=== PATIENT | male | born 1945 | race Caucasian/White ===

== ENCOUNTER 2019-11-19 10:21 | Emergency (ER) | payer MEDICARE, OTHER, SELFPAY ==
[2019-11-19] VITALS (12 sets, daily range): BP systolic 149–193; BP diastolic 75–99; PULSE 68–92; RESP 15–31; TEMP 37; O2SAT 92–98; BMI 38.3
--- NOTE | 2019-11-19 10:43 | DI.RAD.S_ITS ---
PROCEDURE: XR CHEST 1V INDICATIONS: chest pain TECHNIQUE: One view of the chest was acquired. COMPARISON: [facility], CR, XR CHEST 1V, 06/29/2017, 13:49. FINDINGS: Surgical changes and devices: None. Lungs and pleura: Lungs are clear. No pleural effusions or pneumothorax. Mediastinum: Mediastinal contours appear normal. Heart size is at upper limits of normal. Bones and chest wall: No suspicious bony lesions. Overlying soft tissues appear unremarkable. IMPRESSION: No acute cardiopulmonary disease. Dictated by: Pia Mercer M.D. on 11/19/2019 at 11:28 Approved by: Pia Mercer M.D. on 11/19/2019 at 11:51
[2019-11-19] MEDS: FLEETS ENEMA 1 EACH PR (11:02)
[2019-11-19] MEDS: SODIUM CHLORIDE 0.9% 1,000 ML 1000 ML IV (11:02)
--- NOTE | 2019-11-19 11:16 | ED_ITS ---
HPI - Syncope General Chief Complaint: Syncope Stated Complaint: syncope Time Seen by Provider: 11/19/19 10:26 History of Present Illness HPI narrative: 74-year-old gentleman with chronic back pain on methadone with opioid induced chronic constipation presents after a syncopal episode while trying to have a bowel movement this morning. Reports increasing constipation for the past 4 days for which he has continued his Linzess, increased fluids, used MiraLax and this morning was able to produce some tiny turds but no significant bowel movement. He is complaining of increasing abdominal pain and cramping. While he was straining on the toilet this morning he did have a syncopal episode and woke up on the floor of his bathroom. He does not believe he hit anything and has no musculoskeletal complaints. He complains of no chest pain, dyspnea, headache. No acute neurologic changes and he otherwise feels well aside from the continued sense of constipation with abdominal cramping. Related Data Home Medications Medication Instructions Recorded Confirmed aspirin 81 mg PO QDAY #0 10/24/10 06/29/17 Marijuana Candy 1 ea PO PRN PRN 06/29/17 06/29/17 amlodipine 10 mg PO QDAY 06/29/17 06/29/17 atorvastatin 40 mg PO QHS 06/29/17 06/29/17 clonazepam 1 mg PO QDAY 06/29/17 06/29/17 clonazepam 2 mg PO QPM 06/29/17 06/29/17 clonidine HCl 0.1 mg PO QDAY 06/29/17 06/29/17 cyclobenzaprine 10 mg PO Q6H PRN 06/29/17 06/29/17 docusate sodium 100 mg PO BID 06/29/17 06/29/17 finasteride 10 mg PO QHS 06/29/17 06/29/17 hydrochlorothiazide 25 mg PO QDAY 06/29/17 06/29/17 linaclotide [Linzess] 145 mcg PO QDAY 06/29/17 06/29/17 losartan 100 mg PO QDAY 06/29/17 06/29/17 methadone 20 mg PO QDAY 06/29/17 06/29/17 multivitamin 1 tab PO DAILY 06/29/17 06/29/17 omega 0-mzm-pna-fish oil [Fish Oil] 1 cap PO QDAY 06/29/17 06/29/17 sertraline 100 mg PO QDAY 06/29/17 06/29/17 vitamin E 1 cap PO QDAY 06/29/17 06/29/17 Previous Rx's Medication Instructions Recorded diazepam 5 mg PO BID #10 tab 06/29/17 ondansetron [Zofran ODT] 4 mg PO Q6H PRN #10 tab 06/29/17 Allergies Allergy/AdvReac Type Severity Reaction Status Date / Time doxycycline Allergy Severe HARD TIME Unverified 06/29/17 14:28 BREATHING, VOMITING, TROUBLE SWALLOWING lorazepam [LORAZEPAM] Allergy Severe DIFFICULTY Unverified 06/29/17 14:28 BREATHING iodine Allergy Unknown Unverified 06/29/17 14:28 lithium Allergy Unknown Unverified 06/29/17 14:28 morphine Allergy Unknown Unverified 06/29/17 14:28 Penicillins Allergy Unknown Unverified 06/29/17 14:28 sertraline Allergy Unknown Unverified 06/29/17 14:28 shellfish derived Allergy Unknown Unverified 06/29/17 14:28 Sulfa (Sulfonamide Allergy Unknown Unverified 06/29/17 14:28 Antibiotics) Review of Systems Review of Systems Narrative: Pertinent positive and negative findings as per HPI Remainder of review of systems is otherwise unremarkable for Constitutional: Fevers, chills, weakness ENT: No sore throat, neck pain, ear pain Respiratory: Cough, wheeze, dyspnea : Dysuria, hematuria, flank pain MS: Muscle weakness, numbness, joint swelling or warmth Skin: Rashes, nonhealing lesions Patient History Medical History Chronic back pain (Acute) Hypertension (Acute) Therapeutic opioid induced constipation (Acute) Social History Smoking Status: Never smoker Smoking Status: Never smoker Substance Use Type: does not use Exam Narrative Exam Narrative: General: Healthy appearing, in no acute distress. Able to give a complete and coherent history. Well-nourished well-developed HEENT: Moist mucous membranes, normal sclera with reactive pupils, no evidence of trauma Neck: No JVD, supple, no midline tenderness Respiratory: Lungs are clear to auscultation, no wheezing no rales no rhonchi. Full and symmetrical air movement Cardiac: Regular rate and rhythm no murmurs no bruits Abdomen: Soft nontender to palpation good bowel tones, no flank pain Skin: Warm and dry, no rashes Neurologic: Grossly neurologically intact with no obvious asymmetries or abnormalities Extremities: No trauma, well perfused Psych: Cooperative, appropriate insight and affect Rectal exam: Significant amount of firm stool in the rectal vault. Manual disimpaction performed. Initial Vital Signs Initial Vital Signs: Vital Signs Blood Pressure 189/88 H 11/19/19 10:26 Course Orders Ordered: ED Orders 11/19/19 10:26 EKG-12 Lead Routine 11/19/19 10:43 XR chest 1V Stat 11/19/19 11:16 Complete Blood Count AUTO DIFF Stat Comprehensive Metabolic Panel Stat Lipase Stat Partial Thromboplastin Time Stat Prothrombin Time INR Stat Troponin & CK Cardiac Panel Stat Discontinued Medications Bisacodyl (Dulcolax) 10 mg HI NOW ONE Stop: 11/19/19 11:57 Last Admin: 11/19/19 12:09 Dose: 10 mg Documented by: CAYLA Dicyclomine HCl (Bentyl) 20 mg PO NOW ONE Stop: 11/19/19 11:57 Last Admin: 11/19/19 12:09 Dose: 20 mg Documented by: CAYLA Sodium Chloride (Normal Saline 0.9%) 1,000 mls @ 1,000 mls/hr IV BOLUS ONE Stop: 11/19/19 11:47 Last Infusion: 11/19/19 11:57 Dose: 500 mls/hr Documented by: Infusion: 11/19/19 11:15 Dose: 0 mls/hr Documented by: Admin: 11/19/19 11:02 Dose: 1,000 mls/hr Documented by: CAYLA Sodium Chloride (Normal Saline 0.9%) 1,000 mls @ 1,000 mls/hr IV BOLUS ONE Stop: 11/19/19 12:19 Last Admin: 11/19/19 11:57 Dose: Not Given Documented by: CAYLA Sodium Biphosphate/Sodium Phosphate (Fleet Enema) 1 each HI NOW ONE Stop: 11/19/19 10:47 Last Admin: 11/19/19 11:02 Dose: 1 each Documented by: CAYLA Vital Signs Vital signs: Vital Signs - 8 hr 11/19/19 10:26 11/19/19 10:27 11/19/19 10:30 Temperature 98.6 F Pulse Rate 80 77 Respiratory Rate 19 15 Blood Pressure 189/88 H 189/88 H Pulse Oximetry 94 92 11/19/19 11:00 11/19/19 11:30 11/19/19 12:00 Temperature Pulse Rate 81 71 76 Respiratory Rate 18 22 Blood Pressure Pulse Oximetry 11/19/19 12:07 11/19/19 12:30 11/19/19 13:00 Temperature Pulse Rate 75 91 H 92 H Respiratory Rate 27 H 26 H 31 H Blood Pressure 176/75 H 149/99 H Pulse Oximetry MDM - Syncope Medical Records Attestation: I reviewed the patient's medical records. Lab Data Attestation: I reviewed the patient's lab results. Result diagrams: 11/19/19 11:16 11/19/19 11:16 Labs: Lab Results 11/19/19 11/19/19 11/19/19 Range/Units 11:16 11:16 11:16 WBC 9.8 (4.5-11.0) X10^3/uL RBC 4.25 L (4.5-5.9) X10^6/uL Hgb 12.9 L (13.5-17.5) g/dL Hct 38.5 L (41-53) % MCV 90.7 (80-100) fL MCH 30.3 (26-34) PG MCHC 33.4 (30-36) % RDW 13.5 (11.6-14.8) % Plt Count 193 (150-400) X10^3/uL Neut % (Auto) 75.0 (50-75) % Lymph % (Auto) 15.5 L (25-40) % [place] % (Auto) 7.3 (3-14) % Eos % (Auto) 2.0 (2-4) % Baso % (Auto) 0.2 (0-2) % Neut # (Auto) 7300 H (4651-4196) /uL Lymph # (Auto) 1500 (1403-2465) /uL [place] # (Auto) 700 (0-900) /uL Eos # (Auto) 200 (0-450) /uL Baso # (Auto) 0 (0-100) /uL PT 12.3 (10.1-12.7) SECONDS INR 1.1 (0.9-1.3) APTT 26 L (26.4-36.2) SECONDS Sodium 132 L (137-145) mmol/L Potassium 4.3 (3.4-5.1) mmol/L Chloride 98 (98-107) mmol/L Carbon Dioxide 29 (22-32) mmol/L BUN 14 (9-20) mg/dL Creatinine 0.82 (0.66-1.25) mg/dL Estimated GFR > 60.0 (>60) mL/min BUN/Creatinine Ratio 17.1 (6-22) Glucose 122 H (80-110) mg/dL Calcium 8.7 (8.4-10.2) mg/dL Total Bilirubin 1.2 (0.2-1.3) mg/dL AST 43 (17-59) IU/L ALT 44 (<50) IU/L Alkaline Phosphatase 95 (38-126) U/L Total Creatine Kinase 98 (55-170) U/L CK-MB (CK-2) TNP CK-MB (CK-2) Rel Index TNP Troponin I < 0.012 (0.01-0.034) ng/mL Total Protein 6.6 (6.3-8.2) g/dL Albumin 3.7 (3.5-5.0) g/dL Globulin 2.9 (1.7-4.1) g/dL Albumin/Globulin Ratio 1.3 (1.0-2.8) Lipase 39 (23-300) U/L Imaging Data Chest x-ray: Radiologist's Impression: FINDINGS: Surgical changes and devices: None. Lungs and pleura: Lungs are clear. No pleural effusions or pneumothorax. Mediastinum: Mediastinal contours appear normal. Heart size is at upper limits of normal. Bones and chest wall: No suspicious bony lesions. Overlying soft tissues appear unremarkable. IMPRESSION: No acute cardiopulmonary disease. Dictated by: Pia Mercer M.D. on 11/19/2019 at 11:28 ECG Data Attestation: I personally reviewed and interpreted this ECG as follows: Interpretation: Sinus rhythm at a rate of 79 Leftward axis No acute ischemic changes MDM Narrative Medical decision making narrative: Significant constipation. After manual disimpaction and oil enema there still minimal output. Suppository was tried for the stimulation affects. Significant straining cramping and overflow type incontinence. Bladder scan was done and revealed almost a L in the bladder. Rosa was placed without difficulty and 1300 cc his drained out of the 1st 30 minutes and once bladder pain was relieved he was able to have a large bowel movement. Patient is feeling dramatically better We discussed leaving the Rosa in verses taking out. He prefers that come out. He understands that if he is unable to void later today he will need to return to the emergency department to have it replaced. I believe that the urinary retention in the severe constipation were complicating each other and now that both have been relieved both will likely continue to be improved. We did discuss daily MiraLax to prevent continued constipation in the setting of chronic methadone use even while he is taking Linzess. Is on finasteride for enlarged prostate and does have a urologist. Discharge Plan Departure Patient Disposition: Home Clinical Impression: Acute urinary retention Constipation Qualifiers: Constipation type: drug induced constipation Qualified Code(s): K59.03 - Drug induced constipation Instructions: DI for Constipation, DI for Urinary Retention in Men Activity Restrictions/Additional Instructions: Thank you so much for coming in today I am glad that we were able to help with your severe constipation as well as acute urinary retention. I think that one was making the other worse and now that both have improved I am hoping that both will stay asymptomatic. If you find that you are unable to void later this afternoon you will need to return to the emergency room to have a Rosa catheter replaced. I would recommend that you add a scoop of MiraLax every day to your bowel regimen in addition to the Linzess to avoid severe constipation from your methadone use. I hope you feel better Prescriptions: No Action aspirin 81 MG tablet,delayed release (DR/EC) 81 mg PO QDAY Qty: 0 RF: 0 atorvastatin 40 mg tablet 40 mg PO QHS RF: 0 clonazepam 1 mg Tablet 2 mg PO QPM RF: 0 amlodipine 10 mg tablet 10 mg PO QDAY RF: 0 hydrochlorothiazide 25 mg tablet 25 mg PO QDAY RF: 0 clonidine HCl 0.1 mg tablet extended release 12 hr 0.1 mg PO QDAY RF: 0 clonazepam 1 MG tablet 1 mg PO QDAY RF: 0 losartan 100 mg tablet 100 mg PO QDAY RF: 0 cyclobenzaprine 10 mg tablet 10 mg PO Q6H PRN (Reason: Spasms) RF: 0 sertraline 100 mg tablet 100 mg PO QDAY RF: 0 docusate sodium 100 mg Capsule 100 mg PO BID RF: 0 finasteride 5 mg Tablet 10 mg PO QHS RF: 0 linaclotide [Linzess] 145 mcg capsule 145 mcg PO QDAY RF: 0 methadone 10 mg tablet 20 mg PO QDAY RF: 0 multivitamin Tablet 1 tab PO DAILY RF: 0 omega 5-wrm-kje-fish oil [Fish Oil] 1,000 mg (120 mg-180 mg) Capsule 1 cap PO QDAY RF: 0 vitamin E capsule 1 cap PO QDAY RF: 0 Marijuana Candy 1 ea PO PRN PRN (Reason: ptsd) RF: 0 ondansetron [Zofran ODT] 4 mg tablet,disintegrating 4 mg PO Q6H PRN (Reason: nausea) Qty: 10 RF: 0 diazepam 5 mg tablet 5 mg PO BID Qty: 10 RF: 0 Referrals: Epp,Marisol, UNDERWRITING SPECIALIST-BC [Primary Care Provider] -
[2019-11-19 11:25] LABS: Add Manual Diff / Slide Review NO; Basophils Absolute Auto 0 /uL (0-100); Basophils Percent Auto 0.2 % (0-2); Eosinophils Absolute Auto 200 /uL (0-450); Hematocrit 38.5 % (41-53); Hemoglobin 12.9 g/dL (13.5-17.5); Lymphocytes Absolute Auto 1500 /uL (1100-4500); Lymphocytes Percent Auto 15.5 % (25-40); Mean Corpuscular HGB Conc 33.4 % (30-36); Mean Corpuscular Hemoglobin 30.3 PG (26-34); Mean Corpuscular Volume 90.7 fL (80-100); Monocytes Absolute Auto 700 /uL (0-900); Monocytes Percent Auto 7.3 % (3-14); Neutrophils Absolute Auto 7300 /uL (1500-7000); Platelet Count 193 X10^3/uL (150-400); Red Blood Cell Count 4.25 X10^6/uL (4.5-5.9); Red Cell Distribution Width 13.5 % (11.6-14.8); White Blood Cell Count 9.8 X10^3/uL (4.5-11.0)
[2019-11-19 11:29] LABS: INR 1.1 (0.9-1.3); Prothrombin Time 12.3 SECONDS (10.1-12.7)
[2019-11-19 11:32] LABS: PTT Partial Thromboplastin Tim 26 SECONDS (26.4-36.2)
[2019-11-19 11:34] LABS: Alanine Aminotransferase 44 IU/L (<50); Albumin 3.7 g/dL (3.5-5.0); Albumin Globulin Ratio 1.3 (1.0-2.8); Alkaline Phosphatase 95 U/L (38-126); Aspartate Aminotransferase 43 IU/L (17-59); BUN Creatinine Ratio 17.1 (6-22); Bilirubin Total 1.2 mg/dL (0.2-1.3); Blood Urea Nitrogen 14 mg/dL (9-20); Calcium 8.7 mg/dL (8.4-10.2); Carbon Dioxide 29 mmol/L (22-32); Chloride 98 mmol/L (98-107); Creatine Kinase 98 U/L (55-170); Estimated Glomerular Filt Rate > 60.0 mL/min (>60); Globulin 2.9 g/dL (1.7-4.1); Glucose 122 mg/dL (80-110); HEMOLYSIS < 15 (0-50); Lipase 39 U/L (23-300); Potassium 4.3 mmol/L (3.4-5.1); Sodium 132 mmol/L (137-145); Total Protein 6.6 g/dL (6.3-8.2)
[2019-11-19 11:45] LABS: Troponin I < 0.012 ng/mL (0.01-0.034)
[2019-11-19] MEDS: BISACODYL 10 MG SUPP PR (12:09)
[2019-11-19] MEDS: DICYCLOMINE 10 MG CAPSULE 20 MG PO (12:09)
== END 2019-11-19 14:33 | disposition home or self-care (01) ==
PROVIDERS: Emergency Provider Emergency Medicine; PCP Nurse Practitioner Family
DX: R33.8 Other retention of urine (principal); K59.03 Drug induced constipation; R55 Syncope and collapse
CPT/HCPCS: 36415; 51701; 51798; 71045; 80053; 82550; 83690; 84484; 85025; 85610; 85730; 93005; 93010; 96360; 96361; 99285

== ENCOUNTER → 2022-06-23 08:40 | Outpatient (CLI) | payer MEDICARE, OTHER, SELFPAY | PROVIDERS: PCP Internal Medicine; Referring Provider Internal Medicine; Visit Provider Surgery | DX: E11.621 Type 2 diabetes mellitus with foot ulcer (principal); L97.509 Non-pressure chronic ulcer of other part of unspecified foot with unspecified severity; L97.522 Non-pressure chronic ulcer of other part of left foot with fat layer exposed; L84 Corns and callosities; E11.40 Type 2 diabetes mellitus with diabetic neuropathy, unspecified; M21.6X2 Other acquired deformities of left foot | CPT/HCPCS: 36415; 73630; 80053; 83036; 85025; 97597; 99204; 99213 ==

== ENCOUNTER → 2022-06-23 10:06 | Outpatient (CLI) | payer OTHER, SELFPAY ==
--- NOTE | 2022-06-23 10:10 | DI.RAD.S_ITS ---
PROCEDURE: XR FOOT LT MIN 3V INDICATIONS: ulcer on left 3rd toe TECHNIQUE: 3 views of the foot were acquired. COMPARISON: None. FINDINGS: Bones: No fractures or dislocations. No suspicious bony lesions. Soft tissues: No tibiotalar joint effusion. Achilles tendon appears normal. IMPRESSION: Although no bony erosions are identified, plain film radiography is relatively insensitive in the acute phases of osteomyelitis and may not demonstrate radiographic changes for 15 days. If acute osteomyelitis is of clinical concern, nuclear medicine regional bone scan or MRI is recommended. Dictated by: Yasemin Merino M.D. on 06/23/2022 at 11:36 Approved by: Yasemin Merino M.D. on 06/23/2022 at 11:37
[2022-06-23 11:21] LABS: Add Manual Diff / Slide Review NO; Basophils Absolute Auto 0 /uL (0-100); Basophils Percent Auto 0.3 % (0-2); Eosinophils Absolute Auto 100 /uL (0-450); Eosinophils Percent Auto 0.5 % (2-4); Hematocrit 38.4 % (41-53); Lymphocytes Absolute Auto 2100 /uL (1100-4500); Lymphocytes Percent Auto 17.8 % (25-40); Mean Corpuscular HGB Conc 33.9 % (30-36); Mean Corpuscular Hemoglobin 31.4 PG (26-34); Mean Corpuscular Volume 92.5 fL (80-100); Monocytes Absolute Auto 800 /uL (0-900); Monocytes Percent Auto 6.7 % (3-14); Neutrophils Absolute Auto 9000 /uL (1500-7000); Neutrophils Percent Auto 74.7 % (50-75); Platelet Count 310 X10^3/uL (150-400); Red Blood Cell Count 4.15 X10^6/uL (4.5-5.9); Red Cell Distribution Width 13.3 % (11.6-14.8)
[2022-06-23 12:07] LABS: Alanine Aminotransferase 28 IU/L (<50); Albumin 4.2 g/dL (3.5-5.0); Albumin Globulin Ratio 1.4 (1.0-2.8); Alkaline Phosphatase 76 U/L (38-126); Aspartate Aminotransferase 29 IU/L (17-59); BUN Creatinine Ratio 18.8 (6-22); Bilirubin Total 1.7 mg/dL (0.2-1.3); Blood Urea Nitrogen 19 mg/dL (9-20); Carbon Dioxide 27 mmol/L (22-32); Chloride 99 mmol/L (98-107); Estimated Glomerular Filt Rate > 60 mL/min (>60); Globulin 2.9 g/dL (1.7-4.1); Glucose 94 mg/dL (80-110); HEMOLYSIS 22 (0-50); Potassium 4.6 mmol/L (3.4-5.1); Sodium 134 mmol/L (137-145); Total Protein 7.1 g/dL (6.3-8.2)
[2022-06-24 09:34] LABS: x Labcorp Estim. Avg Glu (eAG) 123 mg/dL (.); x Labcorp Hemoglobin A1c 5.9 % (4.8-5.6)
== END ==
PROVIDERS: PCP Internal Medicine; Referring Provider Surgery; Visit Provider Surgery
DX: E11.621 Type 2 diabetes mellitus with foot ulcer (principal); L97.509 Non-pressure chronic ulcer of other part of unspecified foot with unspecified severity
CPT/HCPCS: 36415; 73630; 80053; 83036; 85025

== ENCOUNTER → 2022-06-30 13:01 | Outpatient (CLI) | payer MEDICARE, OTHER, SELFPAY | PROVIDERS: PCP Internal Medicine; Referring Provider Internal Medicine; Visit Provider Surgery | DX: M21.6X2 Other acquired deformities of left foot (principal); I10 Essential (primary) hypertension | CPT/HCPCS: 99213 ==

== ENCOUNTER 2023-11-15 15:53 | Emergency (ER) | payer MEDICARE, OTHER, SELFPAY ==
[2023-11-15] VITALS (15 sets, daily range): BP systolic 105–150; BP diastolic 57–79; PULSE 53–78; RESP 16–21; TEMP 36.6; O2SAT 94–97; BMI 41.3
--- NOTE | 2023-11-15 16:09 | DI.RAD.S_ITS ---
PROCEDURE: XR CHEST 1V INDICATIONS: altered mental status TECHNIQUE: One view of the chest was acquired. COMPARISON: [facility], CR, XR CHEST 1V, 11/19/2019, 10:57. FINDINGS: Surgical changes and devices: None. Lungs and pleura: Lungs are clear. No pleural effusions or pneumothorax. Mediastinum: Mediastinal contours appear normal. Heart size is normal. Bones and chest wall: No suspicious bony lesions. Overlying soft tissues appear unremarkable. IMPRESSION: No acute cardiopulmonary abnormality is seen. Approved by: Raymundo Dos Santos M.D. on 11/15/2023 at 17:02
--- NOTE | 2023-11-15 16:10 | DI.CT.S_ITS ---
PROCEDURE: CT HEAD/BRAIN WO CON INDICATIONS: altered mental status/word salad TECHNIQUE: Noncontrast 4.5 mm thick angled axial sections acquired from the foramen magnum to the vertex, with coronal and sagittal reformats. For radiation dose reduction, the following was used: automated exposure control, adjustment of mA and/or kV according to patient size. COMPARISON: [facility], CT, CT HEAD/BRAIN WO CON, 06/29/2017, 20:25. FINDINGS: CSF spaces: Basal cisterns are patent. No extra-axial fluid collections. Ventricles are normal in size and shape. Brain: No midline shift. No intracranial masses or hemorrhage. [place]-white matter interface is normal. Moderate cerebral and cerebellar volume loss with multifocal white matter chronic ischemic change noted. Atherosclerotic calcification noted associated with cavernous segments of both internal carotid arteries. Left frontal extra-axial arachnoid cyst 2.2 x 5.8 cm, stable from the prior exam. Skull and face: Calvarium and visualized facial bones are intact, without suspicious lesions. Bilateral intraocular lens replacements noted. Left frontal craniotomy secured by sq plates Sinuses: Atelectatic right maxillary sinus with complete opacification is also stable. IMPRESSION: Atrophy and chronic ischemic change without intracranial hemorrhage Left frontal arachnoid cyst associated with craniotomy remains unchanged from the prior. Approved by: Raymundo Dos Santos M.D. on 11/15/2023 at 16:26
--- NOTE | 2023-11-15 16:28 | EKG_ITS ---
[address] [id number] Test Date: 2023-11-15 Pat Name: Jeff Gallegos Department: 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
[2023-11-15 16:38] LABS: Add Manual Diff / Slide Review NO; Basophils Absolute Auto 0 /uL (0-100); Basophils Percent Auto 0.3 % (0-2); Eosinophils Absolute Auto 100 /uL (0-450); Eosinophils Percent Auto 1.2 % (2-4); Hematocrit 39.1 % (41-53); Hemoglobin 12.6 g/dL (13.5-17.5); Lymphocytes Absolute Auto 1600 /uL (1100-4500); Lymphocytes Percent Auto 15.1 % (25-40); Mean Corpuscular HGB Conc 32.3 % (30-36); Mean Corpuscular Hemoglobin 29.6 PG (26-34); Mean Corpuscular Volume 91.7 fL (80-100); Monocytes Absolute Auto 500 /uL (0-900); Monocytes Percent Auto 4.9 % (3-14); Neutrophils Absolute Auto 8300 /uL (1500-7000); Neutrophils Percent Auto 78.5 % (50-75); Platelet Count 270 X10^3/uL (150-400); Red Blood Cell Count 4.26 X10^6/uL (4.5-5.9); Red Cell Distribution Width 14.5 % (11.6-14.8); White Blood Cell Count 10.6 X10^3/uL (4.5-11.0)
[2023-11-15 16:50] LABS: Alanine Aminotransferase 32 IU/L (<50); Albumin 4.1 g/dL (3.5-5.0); Albumin Globulin Ratio 1.4 (1.0-2.8); Alkaline Phosphatase 106 U/L (38-126); Aspartate Aminotransferase 37 IU/L (17-59); BUN Creatinine Ratio 16.1 (6-22); Bilirubin Total 1.1 mg/dL (0.2-1.3); Blood Urea Nitrogen 18 mg/dL (9-20); Calcium 8.9 mg/dL (8.4-10.2); Carbon Dioxide 25 mmol/L (22-32); Chloride 108 mmol/L (98-107); Estimated Glomerular Filt Rate > 60 mL/min (>60); Glucose 121 mg/dL (80-110); HEMOLYSIS < 15 (0-50); Potassium 3.9 mmol/L (3.4-5.1); Sodium 141 mmol/L (137-145); Total Protein 7.1 g/dL (6.3-8.2)
[2023-11-15 17:35] LABS: Ammonia (NH3) < 9 umol/L (9-30)
[2023-11-15 19:47] LABS: Urine Methadone Positive (Negative); Urine Tricyclic Antidepressant Positive (Negative)
[2023-11-15 19:48] LABS: UR Morphine/Opiate cutoff 300 Negative (Negative); Ur Creatinine Normal (Normal); Ur Specific Gravity Normal (Normal); Urine Amphetamines Negative (Negative); Urine Barbiturates Negative (Negative); Urine Benzodiazepines Negative (Negative); Urine Cocaine Negative (Negative); Urine MDMA Negative (Negative); Urine Methamphetamines Negative (Negative); Urine Oxycodone Negative (Negative); Urine Phencyclidine Negative (Negative); Urine Tetrahydrocannabinol Negative (Negative); Urine pH Normal (Normal)
--- NOTE | 2023-11-15 20:11 | ED_ITS ---
HPI - General Adult General Chief complaint: Altered Mental Status Stated complaint: Mental Status Changes Time Seen by Provider: 11/15/23 18:04 History of Present Illness HPI narrative: 78-year-old gentleman who presents with altered mental status. His daughter said that he typically takes his medications around 530 in the morning, patient notes that they are and a Medi set and that they have not changed. Did not denies taking any additional medications today. Daughter says that he seemed to be at his baseline and she checked on him 3 hours later and he was acutely confused with increasing myoclonic jerks. He did not have localizing stroke symptoms. There was no fevers, cough, chills, chest pain. He has what sounds like severe sleep apnea and is scheduled tomorrow to discuss this as well as a referral for a sleep study. He has been seen by neurologist and an EEG as well as MRI has been recommended. He has a nonfunctional nerve stimulator for his chronic back pain so an MRI likely is not going to be an option. It sounds like he was recently increased from 10-15 mg of Flexeril and this happened sometime within the last 3 days. This may explain some of his symptoms. He also is currently taking Belsomra/suvorexant for sleep in the setting of significant polypharmacy and presumed significant sleep apnea. As I am discussing his care in reason for his ER visit with him today he seems to be completely back to his baseline, conversant with fluent thought processes and no localizing neurologic symptoms. Related Data Home Medications Medication Instructions Recorded Confirmed aspirin 81 mg tablet,delayed 81 mg PO QDAY ##0 10/24/10 06/29/17 release Marijuana Candy 1 ea PO PRN PRN ptsd 06/29/17 06/29/17 amlodipine 10 mg tablet 10 mg PO QDAY 06/29/17 06/29/17 atorvastatin 40 mg tablet 40 mg PO QHS 06/29/17 06/29/17 clonazepam 1 mg tablet 1 mg PO QDAY 06/29/17 06/29/17 clonazepam 1 mg tablet 2 mg PO QPM 06/29/17 06/29/17 clonidine HCl 0.1 mg 0.1 mg PO QDAY 06/29/17 06/29/17 tablet,extended release,12 hr cyclobenzaprine 10 mg tablet 10 mg PO Q6H PRN Spasms 06/29/17 06/29/17 docusate sodium 100 mg capsule 100 mg PO BID 06/29/17 06/29/17 finasteride 5 mg tablet 10 mg PO QHS 06/29/17 06/29/17 hydrochlorothiazide 25 mg tablet 25 mg PO QDAY 06/29/17 06/29/17 linaclotide 145 mcg capsule 145 mcg PO QDAY 06/29/17 06/29/17 losartan 100 mg tablet 100 mg PO QDAY 06/29/17 06/29/17 methadone 10 mg tablet 20 mg PO QDAY 06/29/17 06/29/17 multivitamin 1 tab PO DAILY 06/29/17 06/29/17 omega 0-ibg-akr-fish oil 1,000 mg 1 cap PO QDAY 06/29/17 06/29/17 (120 mg-180 mg) capsule (Fish Oil) sertraline 100 mg tablet 100 mg PO QDAY 06/29/17 06/29/17 vitamin E 1 cap PO QDAY 06/29/17 06/29/17 Previous Rx's Medication Instructions Recorded diazepam 5 mg tablet 5 mg PO BID #10 tabs 06/29/17 ondansetron 4 mg disintegrating 4 mg PO Q6H PRN nausea #10 tabs 06/29/17 tablet (Zofran ODT) Allergies Allergy/AdvReac Type Severity Reaction Status Date / Time doxycycline Allergy Severe HARD TIME Unverified 06/29/17 14:28 BREATHING, VOMITING, TROUBLE SWALLOWING lorazepam [LORAZEPAM] Allergy Severe DIFFICULTY Unverified 06/29/17 14:28 BREATHING iodine Allergy Unknown Unverified 06/29/17 14:28 lithium Allergy Unknown Unverified 06/29/17 14:28 morphine Allergy Unknown Unverified 06/29/17 14:28 Penicillins Allergy Unknown Unverified 06/29/17 14:28 sertraline Allergy Unknown Unverified 06/29/17 14:28 shellfish derived Allergy Unknown Unverified 06/29/17 14:28 Sulfa (Sulfonamide Allergy Unknown Unverified 06/29/17 14:28 Antibiotics) Review of Systems Review of Systems Narrative: Pertinent positive and negative findings as per HPI Patient History Medical History (Updated 11/15/23 @ 20:50 by Katlin Underwood MD) Sleep apnea in adult Generalized anxiety disorder Prolonged posttraumatic stress disorder Therapeutic opioid induced constipation Chronic back pain Hypertension Social History Smoking Status: Never smoker Smoking Status: Never smoker Substance Use Type: does not use Exam Initial Vital Signs Initial Vital Signs: Vital Signs Pulse Rate 75 11/15/23 16:03 Respiratory Rate 19 11/15/23 16:03 Pulse Oximetry 94 11/15/23 16:03 General: Chronically ill-appearing but in no acute distress. Respiratory: Lungs are clear to auscultation, no wheezing no rales no rhonchi. Full and symmetrical air movement Cardiac: Regular rate and rhythm no murmurs no bruits Abdomen: Soft, nontender, good bowel tones, no flank pain Skin: Warm and dry, no rashes Neurologic: Grossly neurologically intact with no localizing neurologic findings. He has fine tremor at rest, right hand worse than the left. He has not hyperreflexic, he does not have clonus Extremities: No trauma, well perfused Psych: Cooperative, fluent speech, appropriate affect Course Orders Ordered: ED Orders 11/15/23 16:09 XR chest 1V Stat EKG-12 Lead Stat 11/15/23 16:10 CT head/brain wo con Stat 11/15/23 16:15 Complete Blood Count AUTO DIFF Stat Comprehensive Metabolic Panel Stat 11/15/23 17:08 Ammonia (NH3) Stat 11/15/23 19:37 Urine Drug Screen, Rapid Stat Vital Signs Vital signs: Vital Signs - 8 hr 11/15/23 16:03 11/15/23 16:06 11/15/23 16:36 Temperature 97.8 F Pulse Rate 75 78 69 Respiratory Rate 19 16 20 Blood Pressure 105/61 Pulse Oximetry 94 95 95 Oxygen Delivery Method Room Air Room Air 11/15/23 16:37 11/15/23 16:37 11/15/23 17:00 Temperature Pulse Rate 67 Respiratory Rate 21 Blood Pressure 113/57 L 109/64 Pulse Oximetry 95 Oxygen Delivery Method 11/15/23 17:30 11/15/23 17:30 11/15/23 18:00 Temperature Pulse Rate 65 61 Respiratory Rate 19 20 Blood Pressure 118/66 Pulse Oximetry 95 94 Oxygen Delivery Method 11/15/23 18:30 11/15/23 19:00 11/15/23 19:02 Temperature Pulse Rate 63 61 62 Respiratory Rate 20 Blood Pressure Pulse Oximetry 94 94 96 Oxygen Delivery Method 11/15/23 19:02 11/15/23 19:30 11/15/23 19:31 Temperature Pulse Rate 73 Respiratory Rate 18 Blood Pressure 134/68 150/66 H Pulse Oximetry 97 Oxygen Delivery Method 11/15/23 19:31 Temperature Pulse Rate 66 Respiratory Rate Blood Pressure Pulse Oximetry 96 Oxygen Delivery Method Room Air Medical Decision Making Lab Data 11/15/23 16:15 11/15/23 16:15 Labs: Lab Results 11/15/23 11/15/23 11/15/23 Range/Units 16:15 17:08 19:37 WBC 10.6 (4.5-11.0) X10^3/uL RBC 4.26 L (4.5-5.9) X10^6/uL Hgb 12.6 L (13.5-17.5) g/dL Hct 39.1 L (41-53) % MCV 91.7 (80-100) fL MCH 29.6 (26-34) PG MCHC 32.3 (30-36) % RDW 14.5 (11.6-14.8) % Plt Count 270 (150-400) X10^3/uL Neut % (Auto) 78.5 H (50-75) % Lymph % (Auto) 15.1 L (25-40) % Clark % (Auto) 4.9 (3-14) % Eos % (Auto) 1.2 L (2-4) % Baso % (Auto) 0.3 (0-2) % Neut # (Auto) 8300 H (8804-6194) /uL Lymph # (Auto) 1600 (1866-6760) /uL Clark # (Auto) 500 (0-900) /uL Eos # (Auto) 100 (0-450) /uL Baso # (Auto) 0 (0-100) /uL Sodium 141 (137-145) mmol/L Potassium 3.9 (3.4-5.1) mmol/L Chloride 108 H (98-107) mmol/L Carbon Dioxide 25 (22-32) mmol/L BUN 18 (9-20) mg/dL Creatinine 1.12 (0.66-1.25) mg/dL Estimated GFR > 60 (>60) mL/min BUN/Creatinine Ratio 16.1 (6-22) Glucose 121 H (80-110) mg/dL Calcium 8.9 (8.4-10.2) mg/dL Total Bilirubin 1.1 (0.2-1.3) mg/dL AST 37 (17-59) IU/L ALT 32 (<50) IU/L Alkaline Phosphatase 106 (38-126) U/L Ammonia < 9 L (9-30) umol/L Total Protein 7.1 (6.3-8.2) g/dL Albumin 4.1 (3.5-5.0) g/dL Globulin 3.0 (1.7-4.1) g/dL Albumin/Globulin Ratio 1.4 (1.0-2.8) U Opiates 300ng/mL cut Negative (Negative) Ur Oxycodone Screen Negative (Negative) Urine Methadone Screen Positive H (Negative) Ur Barbiturates Screen Negative (Negative) U Tricyclic Antidepress Positive H (Negative) Ur Phencyclidine Scrn Negative (Negative) Ur Amphetamines Screen Negative (Negative) U Methamphetamines Scrn Negative (Negative) Ur MDMA Scrn (Ecstasy) Negative (Negative) U Benzodiazepines Scrn Negative (Negative) Urine Cocaine Screen Negative (Negative) U Marijuana (THC) Screen Negative (Negative) Urine pH Normal (Normal) Urine Specific [place] Normal (Normal) Ur Creatinine Normal (Normal) Urine Dip Bedside Urine Glucose Negative Bedside Urine Bilirubin - Negative Bedside Urine Ketone - Negative Urine Specific [place] 1.015 Bedside Urine Occult Blood - Negative Bedside Urine pH 7 Bedside Urine Protein - Negative Bedside Urine Urobilinogen - Negative Bedside Urine Nitrite - Negative Bedside Urine Leukocytes - Negative Esterase Point of care testing: Urine Dip Bedside Urine Glucose Negative Bedside Urine Bilirubin - Negative Bedside Urine Ketone - Negative Urine Specific [place] 1.015 Bedside Urine Occult Blood - Negative Bedside Urine pH 7 Bedside Urine Protein - Negative Bedside Urine Urobilinogen - Negative Bedside Urine Nitrite - Negative Bedside Urine Leukocytes - Negative Esterase MDM Narrative Medical decision making narrative: CC: Altered mental status, Complicating co-morbidities: Methadone maintenance, significant polypharmacy, presumed severe sleep apnea, depression, PTSD currently being evaluated for Parkinson's disease Data collected from: patient, 2 daughters Medical records reviewed: Nursing notes and previous ER records reviewed Differential considered: TIA, sepsis, stroke, adverse medication reactions, polypharmacy Exam documented above, pertinent findings include: By the time of my exam patient appears to be back at his baseline. Has fine tremor rest in the upper extremities. Fluent speech appropriate insight Lab Test results independently reviewed as above. Pertinent findings: CBC is unremarkable Chemistries are reassuring. Normal renal function and electrolytes. Ammonia level is undetectable Independently reviewed EKG: Sinus rhythm at rate of 65. 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 No acute ischemic changes Imaging studies independently reviewed: Chest x-ray is unremarkable CT scan of the head shows chronic changes from left frontal arachnoid cyst with craniotomy with no new findings or acute issues Treatments: Bladder scan does show 600 cc of urine Discussion: 78-year-old gentleman with multiple medical problems significant polypharmacy related to his psychiatric issues, chronic back pain and medical management. His primary care provider is Bharath Irby. It sounds like he has recently had Flexeril changed is currently on Belsomra in the setting of sleep apnea in addition to multiple other medication that all have significant potential interactions. He had an episode today of acute confusion lasting approximately 4 hours seems to be entirely resolved. There was no evidence of stroke and no localizing symptoms to suggest this is a TIA. Most likely explanation at this point is polypharmacy with the recent increase in Flexeril and continued sleeping medication. He has not appointment with his primary care provider tomorrow and we will be setting up a sleep study. I also recommended consideration of a gerontologist consultation to review all medications and consider discontinuing his many as possible. He and his daughters we will both quite comfortable with this and comfortable with discharge home today. I do not think that he has a life-threatening issue such as sepsis, other infection, stroke, acute cardiac etiology or other finding that would benefit from hospitalization or additional imaging today. I do believe that an MRI is not going to be an option because of his implanted nerve stimulator. Questions are answered and they are safe for discharge Discharge Plan Departure Patient Disposition: Home Clinical Impression: Acute alteration in mental status, Polypharmacy Instructions: Aging Gracefully: Reducing the Risks of Polypharmacy, DI for Obstructive Sleep Apnea -- Adult Activity Restrictions/Additional Instructions: Thank you for coming in today Your workup was actually very reassuring. There does not appear to be any evidence of stroke, infection, heart attack or acute issue that would require hospitalization today. You do seem to be back to your baseline after the events and confusion of the morning I suspect that the acute confusion this morning is related to all of your medications. Many of your medications interact with each other and many are not going to be particularly helpful as you get older and in the setting of probable sleep apnea. [place] I would recommend that you do not take the Belsomra, sleeping pill or the Flexeril With your primary care provider discussion tomorrow, please review your ER visit from today. Make sure you take all of your medications including the ones that you take only as needed as well as ones that you take every single day. I do believe that a sleep study is going to be very appropriate for you. Many of the medications that you are on are contraindicated in the setting of sleep apnea in his 78-year-old gentleman. Consider a referral to Geriatric internal corrosion specialist to review all of your medications and make sure all of your providers are communicating with each other regarding changes to medications If you find that you are getting worse or develop any new symptoms, please feel free to return to the emergency department for further evaluation. Prescriptions: No Action aspirin 81 MG tablet,delayed release (DR/EC) 81 mg PO QDAY Qty: 0 atorvastatin 40 mg tablet 40 mg PO QHS clonazepam 1 mg Tablet 2 mg PO QPM amlodipine 10 mg tablet 10 mg PO QDAY Patient Comments: took am meds today but vomited them up hydrochlorothiazide 25 mg tablet 25 mg PO QDAY clonidine HCl 0.1 mg tablet extended release 12 hr 0.1 mg PO QDAY clonazepam 1 MG tablet 1 mg PO QDAY losartan 100 mg tablet 100 mg PO QDAY cyclobenzaprine 10 mg tablet 10 mg PO Q6H PRN (Reason: Spasms) sertraline 100 mg tablet 100 mg PO QDAY docusate sodium 100 mg Capsule 100 mg PO BID finasteride 5 mg Tablet 10 mg PO QHS linaclotide [Linzess] 145 mcg capsule 145 mcg PO QDAY methadone 10 mg tablet 20 mg PO QDAY multivitamin Tablet 1 tab PO DAILY omega 2-qhk-aqj-fish oil [Fish Oil] 1,000 mg (120 mg-180 mg) Capsule 1 cap PO QDAY vitamin E capsule 1 cap PO QDAY Marijuana Candy 1 ea PO PRN PRN (Reason: ptsd) ondansetron [Zofran ODT] 4 mg tablet,disintegrating 4 mg PO Q6H PRN (Reason: nausea) Qty: 10 0RF diazepam 5 mg tablet 5 mg PO BID Qty: 10 0RF Referrals: Corona Valdez MD [Primary Care Provider] - Stand Alone Forms: Patient Portal/API
== END 2023-11-15 21:20 | disposition home or self-care (01) ==
PROVIDERS: Emergency Medicine; Emergency Provider Emergency Medicine; PCP Internal Medicine
DX: R41.82 Altered mental status, unspecified (principal); Z79.899 Other long term (current) drug therapy; I44.7 Left bundle-branch block, unspecified
CPT/HCPCS: 36415; 51798; 70450; 71045; 80053; 80305; 81003; 82140; 85025; 93005; 99284

== ENCOUNTER → 2024-12-30 17:01 | Outpatient (CLI) | payer MEDICARE, OTHER, SELFPAY ==
--- NOTE | 2024-12-30 17:04 | DI.MRI.S_ITS ---
PROCEDURE: MR LUMBAR SPINE WO/W CON
== END ==
LOC: MRI 17:03
PROVIDERS: Family Provider Internal Medicine; PCP Internal Medicine; Referring Provider Neurological Surgery; Visit Provider Neurological Surgery
DX: M51.16 Intervertebral disc disorders with radiculopathy, lumbar region (principal); M47.26 Other spondylosis with radiculopathy, lumbar region; M48.061 Spinal stenosis, lumbar region without neurogenic claudication; M48.56XA Collapsed vertebra, not elsewhere classified, lumbar region, initial encounter for fracture
CPT/HCPCS: 72158; A9579

== ENCOUNTER → 2025-01-02 08:39 | Outpatient (CLI) | payer MEDICARE, OTHER, SELFPAY | LOC: PHYS 08:45 | PROVIDERS: Family Provider Internal Medicine; PCP Internal Medicine; Referring Provider Student in an Organized Health Care Education/Training Program; Visit Provider Student in an Organized Health Care Education/Training Program | DX: R20.2 Paresthesia of skin (principal) | CPT/HCPCS: 95886; 95910 ==